=== PATIENT | female | born 1975 | race Two or more races ===

== ENCOUNTER 2018-06-30 06:40 | Inpatient (IN) ==
[2018-06-30] MEDS ORDERED: D5LR 1L W PITOCIN 10 UNITS/L 10 UNITS/1,000 ML BAG IV ONE ×2 (06:48→20:27)
[2018-06-30] MEDS ORDERED: PITOCIN ONE ×3 (06:49→15:53)
[2018-06-30] MEDS ORDERED: D5 1/2 NS 1000 ML 1,000 ML IV ONE ×3 (06:49→20:28)
[2018-06-30] MEDS ORDERED: PITOCIN IVP ONE (07:03)
[2018-06-30] MEDS ORDERED: REGLAN INJ 10 MG VIAL IVP PRN (07:03)
[2018-06-30] MEDS ORDERED: PHENERGAN INJ 25 MG IV PRN (07:03)
[2018-06-30] MEDS ORDERED: DILAUDID INJ IVP PRN (07:03)
[2018-06-30] MEDS ORDERED: D5LR 1L W PITOCIN 10 UNITS/L 10 UNITS/1,000 ML BAG IV PRN (07:03)
[2018-06-30] MEDS: D5 1/2 NS 1000 ML 1,000 ML IV SCH ×2 (07:15→20:20)
[2018-06-30 07:22] LABS: BILIRUBIN,URINE NEGATIVE (NEGATIVE); BLOOD/HEMOGLOBIN,URINE NEGATIVE (NEGATIVE); GLUCOSE, URINE NEGATIVE (NEGATIVE); KETONES,URINE NEGATIVE (NEGATIVE); LEUKOCYTE ESTERASE ,URINE 3+ (NEGATIVE); NITRITES,URINE NEGATIVE (NEGATIVE); PROTEIN,URINE 1+ (NEGATIVE); UROBILINOGEN,URINE NORMAL (NORMAL)
[2018-06-30 07:33] LABS: BASOPHILS % (AUTO) 0.5 % (0.2-1.0); EOSINOPHILS # (AUTO) 0.1 x10^3/uL (0.0-0.2); HEMOGLOBIN 13.6 g/dL (12.0-16.0); LYMPHOCYTES # (AUTO) 2.8 X10^3/uL (1.3-2.9); LYMPHOCYTES % (AUTO) 37.8 % (21.0-51.0); MEAN CORPUSCULAR HEMOGLOBIN 27.8 pg (27.0-34.0); MEAN CORPUSCULAR HGB CONC 33.9 g/dL (33.0-35.0); MEAN CORPUSCULAR VOLUME 81.9 fL (80.0-100.0); MEAN PLATELET VOLUME 10.1 fL (7.4-11.0); MONOCYTES # (AUTO) 0.7 x10^3/uL (0.3-0.8); MONOCYTES % (AUTO) 8.7 % (0.0-13.0); NEUTROPHILS # (AUTO) 3.9 x10^3/uL (2.2-4.8); PLATELET COUNT 237 X10^3/uL (150.0-450.0); RED BLOOD COUNT 4.89 X10^6/uL (3.5-5.4); RED CELL DISTRIBUTION WIDTH 13.8 % (11.6-16.5); WHITE BLOOD COUNT 7.5 X10^3/uL (3.6-10.0)
[2018-06-30 07:34] LABS: APPEARANCE,URINE CLOUDY (CLEAR); COLOR,URINE YELLOW (YELLOW)
[2018-06-30 07:35] LABS: BACTERIA,URINE TRACE /HPF (NEGATIVE); RBC,URINE NONE SEEN /HPF (NONE SEEN); SQUAMOUS EPITHELIAL CELL,UR MANY /HPF (NEGATIVE)
[2018-06-30 07:35] LABS: BLOOD UREA NITROGEN 9 mg/dL (7-18); CALCIUM 8.9 mg/dL (8.5-10.1); CARBON DIOXIDE 22.2 mmol/L (21-32); CHLORIDE 104 mmol/L (98-107); CREATININE 0.55 mg/dL (0.55-1.02); SODIUM 137 mmol/L (136-145); eGFR NON BLACK RACES > 60 (>60)
[2018-06-30] MEDS ORDERED: NUBAIN INJ 10 ONE ×2 (10:53→17:40)
[2018-06-30] MEDS: NUBAIN INJ 200 MG VIAL MULTIDOSE IVP PRN ×2 (11:17→17:41)
[2018-06-30] MEDS ORDERED: ZOFRAN INJ 4 MG VIAL ONE (15:53)
[2018-06-30] MEDS ORDERED: EPHEDRINE SULFATE INJ ONE (15:53)
[2018-06-30] MEDS ORDERED: D5 1/2 NS 1L W PITOCIN 20 UNITS/L 0 UNITS/0 ML BAG IV ONE (17:37)
[2018-06-30] MEDS ORDERED: ANCEF VIAL 1 GRAM ONE (22:59)
[2018-06-30] MEDS ORDERED: DILAUDID INJ ONE (23:08)
[2018-06-30] MEDS ORDERED: D5 1/2 NS 1L W PITOCIN 20 UNITS/L 20 UNITS/1,000 ML BAG IV ONE (23:19)
[2018-06-30] MEDS ORDERED: XYLOCAINE 1 % (PLAIN) ONE (23:19)
[2018-07-01] MEDS ORDERED: REGLAN INJ 10 MG VIAL IVP PRN ×2 (00:09→00:49)
[2018-07-01] MEDS ORDERED: ZOFRAN INJ 4 MG VIAL IVP PRN ×2 (00:09→00:49)
[2018-07-01] MEDS ORDERED: PHENERGAN INJ 25 MG IVP PRN (00:09)
[2018-07-01] MEDS ORDERED: BENADRYL INJ 50 MG VIAL IVP PRN ×2 (00:09→00:49)
[2018-07-01] MEDS ORDERED: NS 1000 ML 1,000 ML ONE (00:29)
[2018-07-01] MEDS ORDERED: PERCOCET TAB 5/325 MG PO PRN (00:49)
[2018-07-01] MEDS ORDERED: TORADOL 30 MG VIAL IVP PRN (00:49)
[2018-07-01] MEDS ORDERED: D5 1/2 NS 1000 ML 1,000 ML with PITOCIN 20 UNITS IV SCH ×2 (00:49)
[2018-07-01] MEDS ORDERED: ADACEL or BOOSTRIX TDaP VACCINE IM ONE ×2 (00:49→12:49)
[2018-07-01] MEDS ORDERED: NARCAN INJ IVP PRN ×2 (00:49)
[2018-07-01] MEDS ORDERED: TORADOL 30 MG VIAL ONE (01:50)
[2018-07-01 06:13] LABS: HEMATOCRIT 34.6 % (36.0-47.0); HEMOGLOBIN 11.5 g/dL (12.0-16.0)
[2018-07-01] MEDS: PRENATAL PLUS PO SCH (08:52)
[2018-07-01] MEDS: ZANTAC PO SCH ×2 (08:52→20:17)
[2018-07-01] MEDS: MYLICON TAB 80 MG CHEW PO PRN ×2 (09:00→20:25)
[2018-07-01] MEDS: PERCOCET TAB 5/325 MG PO PRN (18:45)
[2018-07-02] MEDS ORDERED: MOTRIN TAB 800 MG PO PRN (00:49)
[2018-07-02] MEDS: PERCOCET TAB 5/325 MG PO PRN (07:26)
[2018-07-02] MEDS: PRENATAL PLUS PO SCH (08:32)
[2018-07-02] MEDS: ZANTAC PO SCH (08:32)
[2018-07-02 09:26] VITALS: BP 130/76
== END 2018-07-02 10:05 | disposition home or self-care (01) | DRG 788 ==
LOC: LD 06:40 → MED/SURG 07-01 00:43
PROVIDERS: ADMIT Obstetrics & Gynecology Obstetrics; ATTEND Obstetrics & Gynecology Obstetrics
DX: Z37.0 Single live birth; Z23 Encounter for immunization; O62.0 Primary inadequate contractions; O61.8 Other failed induction of labor; Z3A.39 39 weeks gestation of pregnancy; O33.8 Maternal care for disproportion of other origin
CPT/HCPCS: 36415; 80048; 81001; 85014; 85018; 85025; 86592; 86850; 86900; 86901; 90715; 94760; A4216; A4222; S0197; J0690; J1170; J1885; J2300; J2405; J2590; J3490; J7030; S5010